=== PATIENT | male | born 2000 | race Caucasian/White ===

== ENCOUNTER → 2020-11-01 18:26 | Outpatient (CLI) | payer OTHER, SELFPAY ==
--- NOTE | 2020-11-01 18:35 | US_ITS ---
STUDY: SCROTUM ULTRASOUND REASON FOR EXAM: Male, 19 years old. RIGHT TESTICULAR PAIN TECHNIQUE: Ultrasound evaluation of the scrotum was performed with color Doppler and static jauregui-scale imaging. COMPARISON: None. FINDINGS: RIGHT TESTICLE INTRATESTICULAR: There is a normal size of the right testicle. The right testicle measures 5 x 3 x 2.3 cm. There is a homogenous echotexture. There is normal arterial and normal venous vascularity. There is no demonstrated right testicular mass or cyst. EXTRATESTICULAR: The epididymis is normal in size. The epididymis head measures 1 cm. There is normal vascularity of the epididymis. There is no demonstrated epididymal cystic structure. There is no demonstrated hydrocele. There is no demonstrated varicocele. There is no demonstrated extratesticular mass or cyst. LEFT TESTICLE INTRATESTICULAR: There is a normal size of the left testicle. The left testicle measures 3.4 x 3.0 x 2.2 cm. There is a homogenous echotexture. There is normal arterial and normal venous vascularity. There is no demonstrated left testicular mass or cyst. EXTRATESTICULAR: The epididymis is normal in size. The epididymis head measures 1 cm. There is normal vascularity of the epididymis. There is no demonstrated epididymal cystic structure. There is a small hydrocele. There is no demonstrated varicocele. There is no demonstrated extratesticular mass or cyst. Questionable bilateral inguinal hernias US/Testicular with Arterial Flow IMPRESSION: Small right hydrocele. Questionable bilateral inguinal hernias. Consider CT pelvis to further evaluate Electronically Signed: Bradley Schmitz DO at 0:10 EST Tel , Service support ,
== END ==
PROVIDERS: PCP Pediatrics; Visit Provider Nurse Practitioner
DX: N50.811 Right testicular pain (principal)
CPT/HCPCS: 76870; 93976

== ENCOUNTER → 2020-11-21 08:15 | Outpatient (CLI) | payer OTHER, SELFPAY ==
[2020-11-14 09:59] VITALS: BMI 25.1
--- NOTE | 2020-11-21 08:21 | CT_ITS ---
STUDY: CT PELVIS WITHOUT CONTRAST REASON FOR EXAM: Male, 19 years old. Groin pain -- no oral or IV contrast RADIATION DOSAGE (If Supplied By Facility): CTDIvol = ( 28 ) mGy, DLP = ( 1151.95 ) mGycm TECHNIQUE: Transaxial imaging of the pelvis was performed with oral contrast, and without intravenous administration of contrast material. Individualized dose optimization techniques were used for this CT. COMPARISON: None. FINDINGS: Normal urinary bladder. Small right hydrocele. Normal visualized small intestine. Normal visualized colon. The patient is status post appendectomy. There is no pelvic fluid. There is no pelvic mass lesion or lymphadenopathy. Normal visualized pelvic arteries. Normal abdominal wall. Normal osseous structures. CT/Pelvis without IV Contrast IMPRESSION: Small right hydrocele. Status post appendectomy. Electronically Signed: Tomas Kenney MD at 8:54 EDT , Service support ,
== END ==
PROVIDERS: PCP Pediatrics; Referring Provider Surgery; Visit Provider Surgery
DX: R10.31 Right lower quadrant pain (principal)
CPT/HCPCS: 72192